=== PATIENT | female | born 1975 | race African-American/Black ===

== ENCOUNTER 2024-12-01 07:31 | Day surgery (SDC) | payer OTHER ==
[2024-12-01 10:13] VITALS: TEMP 98
[2024-12-01 10:52] VITALS: BP 145/73; PULSE 73; RESP 15
== END 2024-12-01 10:55 | disposition home or self-care (01) ==
LOC: JASU-ENDO 07:31
PROVIDERS: ATTEND Internal Medicine Gastroenterology
PROC: 0DJD8ZZ Inspection of Lower Intestinal Tract, Via Natural or Artificial Opening Endoscopic (ICD-10-PCS; principal; 2024-12-01 09:00)
DX: Z12.11 Encounter for screening for malignant neoplasm of colon (principal)
CPT/HCPCS: 81025